=== PATIENT | female | born 1945 | race Caucasian/White ===

== ENCOUNTER 2018-04-14 19:49 | Emergency (ER) | payer OTHER, MEDICAID ==
[~2018-04-14] VITALS: Ht 152.4 cm; Wt 63.5 kg
[~2018-04-14 19:49] MED LIST: ACETAMINOPHEN325 M1 PO; AMLODIPINE BESY10 MG PO; ANTIVERT25 MG PO; ASPIR 8181 MG PO; CIPROFLOXACIN250 M2 PO; CLONIDINE0.1 PO; COREG25 MG PO; COREG3.125 MG PO; ELIQUIS5 MG PO; GLUCOPHAGE500 MG PO; K-DUR 20 MEQ T20 MEQ PO; K-DUR10 MEQ PO; LIPITOR 20 MG T20 M1 PO; LISINOPRIL10 MG PO; NORVASC5 MG PO; PHENAZOPYRIDIN200 M2 PO; PHENAZOPYRIDINE PO; PIOGLITAZONE15 MG PO; SORINE 80 MG TA80 M1 PO; TOPROL XL50 MG PO; ZANTAC300 MG PO; ZOCOR20 MG PO; ZOFRAN ODT4 MG PO
[2018-04-14] MEDS ORDERED: COREG25 MG PO (20:04)
[2018-04-14] MEDS ORDERED: EYE DROP TEARS15 ML OPHTHALMIC (20:04)
[2018-04-14] MEDS ORDERED: ASPIR 8181 MG PO (20:07)
[2018-04-14 20:17] LABS: URINE BLOOD NEGATIVE (Negative); URINE CLARITY CLEAR; URINE COLOR YELLOW; URINE GLUCOSE-RANDOM TRACE (Negative); URINE KETONES 1+ (Negative); URINE LEUKOCYTES-REFLEX TRACE (Negative); URINE NITRITE-REFLEX NEGATIVE (Negative); URINE PROTEIN 1+ (Negative)
[2018-04-14 20:20] LABS: ICTOTEST (BILI CONFIRMATORY) Negative (Negative); URINE BILIRUBIN 1+ (Negative)
[2018-04-14 20:28] LABS: ABSOLUTE BASOPHILS 0.1 thou/uL (0.0-0.2); ABSOLUTE EOSINOPHILS 0.2 thou/uL (0.0-0.7); ABSOLUTE LYMPHOCYTES 2.8 thou/uL (0.8-5.3); ABSOLUTE MONOCYTES 1.3 thou/uL (0.0-1.2); ABSOLUTE NEUTROPHILS 5.8 thou/uL (1.6-8.1); BASOPHILS 1.2 %; EOSINOPHILS 1.6 %; HEMATOCRIT 44.2 % (37.0-47.0); HEMOGLOBIN 14.6 gm/dL (12.0-15.0); LYMPHOCYTES 27.4 %; MCH 29.7 pg (26.0-34.0); MONOCYTES 12.7 %; MPV 11.5 fl. (7.2-11.1); NUCLEATED RBCS 0 /100WBC; PLATELET COUNT* 187 thou/uL (150-400); POLYS 57.1 %; RDW-CV 13.4 % (10.5-14.5); WBC 10.1 thou/uL (4.0-11.0)
[2018-04-14 20:30] LABS: HYALINE CASTS >10 Many /LPF (None Seen); MUCUS None Seen strn/LPF (None Seen); SQUAMOUS >10 Many /LPF (0-3)
[2018-04-14 20:31] LABS: BACTERIA-REFLEX 1-9 Few /HPF (None Seen); CRYSTALS None Seen /LPF (None Seen); URINE WBC-REFLEX 0-5 Rare /HPF (0-5)
[2018-04-14 20:32] LABS: URINE RBC 0-2 Rare /HPF (0-2)
[2018-04-14 20:35] LABS: AMP/METHAMP Negative (Negative); BARBITURATES Negative (Negative); BENZODIAZEPINES Negative (Negative); COCAINE Negative (Negative); METHADONE Negative (Negative); OPIATES Negative (Negative); PCP Negative (Negative); THC Negative (Negative)
[2018-04-14 20:43] LABS: ANION GAP 8 mmol/L (7-16); BUN 17 mg/dL (7-18); CALCIUM 9.6 mg/dL (8.5-10.1); CHLORIDE 100 mmol/L (98-107); CO2 30 mmol/L (21-32); CREATININE 1.3 mg/dL (0.6-1.3); GLUCOSE 163 mg/dL (70-99); SODIUM 138 mmol/L (136-145)
[2018-04-14 20:44] LABS: ALKALINE PHOSPHATASE 80 U/L (46-116); SGOT 23 U/L (15-37); SGPT 30 U/L (30-65); TOTAL BILIRUBIN 0.4 mg/dL (<0.1-1.0); TOTAL PROTEIN 8.3 g/dL (6.4-8.2); TROPONIN-I LEVEL <0.06 ng/mL (<0.06)
[2018-04-14 20:48] LABS: ALCOHOL < 10 mg/dL (<10); SALICYLATE 3.3 mg/dL (2.8-20.0)
[2018-04-14 20:51] LABS: ACETAMINOPHEN < 2 ug/mL (10-30)
[2018-04-15 00:45] VITALS: BP 179/83
--- NOTE | 2018-04-15 13:39 | EKG ---
[place] [address] ELECTROCARDIOGRAM REPORT Name: JARRETT BECK Room: [facility]#: [id number] Admission: 04/14/18 Attend Phys: Discharge: 04/15/18 Date of : 41 Report #: [id number] THIS REPORT FOR: //name// [facility] ED Test Date: 2018-04-14 Test Time: 20:14:16 Pat Name: JARRETT PEREZBURY Department: Room: Gender: F Zoning Administrator: DAMARIS : 1945 Requested By: Roosevelt Holt Order Number: [id number] MD: Humberto Buitrago Measurements Intervals Wall Rate: 82 P: 41 [place]: 136 QRS: -22 QRSD: 89 T: 23 QT: 395 QTc: 462 Interpretive Statements Sinus rhythm nonspecific st changes Borderline left axis deviation Compared to ECG 08/20/2017 10:49:[address] changes noted Electronically Signed On 04-15-2018 13:39:10 CDT by Humberto Buitrago [email or web address] <ELECTRONICALLY SIGNED> By: Humberto Buitrago MD, [facility] 04/15/18 1339 13 13 Humberto Buitrago MD, FACC /EPI
== END 2018-04-15 01:17 | disposition short-term general hospital (02) ==
LOC: M.ERS 19:49
PROVIDERS: Emergency Medicine
DX: R45.851 Suicidal ideations (principal); G89.29 Other chronic pain; M54.9 Dorsalgia, unspecified; E11.9 Type 2 diabetes mellitus without complications; I10 Essential (primary) hypertension; E78.5 Hyperlipidemia, unspecified; Z86.73 Personal history of transient ischemic attack (TIA), and cerebral infarction without residual deficits

== ENCOUNTER 2018-05-29 08:45 | Emergency (ER) | payer OTHER, MEDICAID ==
[~2018-05-29] VITALS: Ht 152.4 cm; Wt 63.5 kg
[~2018-05-29 08:45] MED LIST changes: +EYE DROP TEARS15 ML OPHTHALMIC
[2018-05-29] MEDS ORDERED: TRAMADOL HCL50 MG PO (09:01)
[2018-05-29] MEDS ORDERED: TRAZODONE HCL100 MG PO (09:02)
[2018-05-29] MEDS ORDERED: PERCOCET 5-3251 EACH PO (09:40)
[2018-05-29 10:34] VITALS: BP 172/66
== END 2018-05-29 10:34 | disposition home or self-care (01) ==
LOC: M.ERS 08:45
DX: S52.591A Other fractures of lower end of right radius, initial encounter for closed fracture (principal); G89.29 Other chronic pain; M54.9 Dorsalgia, unspecified; E11.9 Type 2 diabetes mellitus without complications; I10 Essential (primary) hypertension; E78.5 Hyperlipidemia, unspecified; Z86.73 Personal history of transient ischemic attack (TIA), and cerebral infarction without residual deficits; W01.0XXA Fall on same level from slipping, tripping and stumbling without subsequent striking against object, initial encounter; Y93.89 Activity, other specified; Y92.89 Other specified places as the place of occurrence of the external cause; Y99.8 Other external cause status

== ENCOUNTER 2018-06-08 11:19 | Observation (INO) | payer OTHER, MEDICAID ==
[~2018-06-08] VITALS: Ht 152.4 cm; Wt 66.2 kg
[~2018-06-08 11:19] MED LIST changes: +PERCOCET 5-3251 EACH PO; +TRAMADOL HCL50 MG PO; +TRAZODONE HCL100 MG PO
[2018-06-08 12:17] VITALS: BP 147/73
[2018-06-08 12:26] LABS: HEMATOCRIT 37.5 % (37.0-47.0); HEMOGLOBIN 12.3 gm/dL (12.0-15.0); MCH 29.6 pg (26.0-34.0); MCHC 32.9 g/dL (28.0-37.0); MCV 89.8 fL (80.0-100.0); MPV 11.7 fl. (7.2-11.1); RBC 4.18 mil/uL (4.20-5.00); RDW-CV 14.3 % (10.5-14.5); WBC 8.1 thou/uL (4.0-11.0)
[2018-06-08 12:30] LABS: CALCIUM 9.6 mg/dL (8.5-10.1); CREATININE 0.9 mg/dL (0.6-1.3); POTASSIUM 3.5 mmol/L (3.5-5.1)
[2018-06-08 18:37] VITALS: BP 159/77
--- NOTE | 2018-06-08 18:58 | NUR ---
LEFT MESSAGE FOR PT'S DAUGHTER, SAMANTHA, BY PHONE TO UPDATE HER ON HER MOTHER'S SURGERY AND HER STATUS.
[2018-06-08 20:00] VITALS: BP 148/79
[2018-06-09] VITALS: BP 147/70
[2018-06-09 04:36] VITALS: BP 145/71
--- NOTE | 2018-06-09 05:46 | NUR ---
ASSESSMENT COMPLETE. PT SLEPT PART OF THE NIGHT. PT GIVEN PAIN MEDICATION ONCE DURING THE NIGHT. DRESSING AND SPLINT TO LEFT ARM INTACT. LEFT ARM ELEVATED AND COLD PACK IN PLACE. PT IS ON 2L PER NC WITH CAPNO IN PLACE. PT IS UP ONE ASSIST. FALL RISK, BED ALARM ON. SEE ASSESSMENT AND VITALS FOR OTHER DETAILS. CALL LIGHT WITHIN REACH, WILL CONTINUE PLAN OF CARE
[2018-06-09 08:24] VITALS: BP 160/73
[2018-06-09 08:25] VITALS: BP 160/73
--- NOTE | 2018-06-09 09:50 | NUR ---
ASSUMED CARES OF PT AT 0700. PT IN BED, BED IN LOW LOCKED POSITION. CALL BUTTON AND PERSONAL ITEMS IN PT REACH. PT A&O X4, HRRR PER AUSCULTATION, LCTAB, ABD HYPOACTIVE FOUR QUADRANTS. VSS ON 2L O2 NC/CAPNO. LAST BM YESTERDAY. MINIMAL EDEMA IN LEFT HAND/FINGERS R/T WRIST SURGERY, PT STATES FINGERS HAVE IMPROVED. PT UP TO BSC. RIGHT FA IV PATENT TO FLUSH/SALINE LOCKED. AFEBRILE, PERRLA. PAIN TREATED WITH OXY IR 10MG, EFFECTIVE. HOURLY ROUNDING AND ACCU CHECKS CONTINUE. PT PROGRESSING TOWARDS GOAL. WILL CONTINUE TO MONITOR PT STATUS/PROGRESS.
[2018-06-09 12:55] VITALS: BP 160/73
--- NOTE | 2018-06-09 14:00 | NUR ---
PT.ALERT AND ORIENTED. STATED SHE LIVES ALONE. HER 2 DAUGHTERS,LIVE IN [place]. SHE SAID SHE LIVES IN A HOUSE. DOES NOT USE ANY DME. SHE DOES NOT HAVE WATER AT HER HOME SHE COULD NOT PAY HER BILL SINCE NOV. IT WAS SHUT OFF IN DEC. SHE ALSO DOES NOT HAVE A PHONE SHE COULD NOT PAY HER BILL. SHE SAYS ONE OF HER DAUGHTER'S PAY HER ELECTRIC BILL. SHE DOES HAVE A WINDOW UNIT AIR CONDITIONER. SHE SAID SHE HAS A CAR BUT ALOT OF TIMES SHE DOES NOT HAVE MONEY FOR GAS. SHE GETS FOOD STAMPS. SHE BUYS ALOT OF BOTTLED WATER. TRISHA CALLED [facility] AND SPOKE WITH ROSEANNA COLEMAN. SHE SAID PT. WOULD OWE $100 DEPOSIT TO GET WATER BACK ON AND $65 FOR THE DEC.BILL. TRISHA ATTEMPTED TO CALL [employer] IN [place] FOR ANY ASSISTANCE THEY COULD GIVE PT. BUT THEY ARE ONLY OPEN ON /. SHE SAID SHE INHERITED A HOUSE FROM HER MOM BACK IN $2010. THE GOVERNMENT TOOK AWAY HER SS DISABILITY SINCE SHE INHERITED THIS HOUSE. SHE HAS SOLD THE HOUSE BUT THE MONEY SHE MADE FROM IT WENT TO THE UPKEEP OF THE HOUSE. GAVE HER [employer] INFORMATION. TOLD HER SHE SHOULD HAVE A SOUND MIXER THROUGH HER MEDICAID. SHE WILL SEE IF SHE CAN FIND OUT WHO IT IS. TRISHA OBTAINED DAUGHTER-SAMANTHA ELDER IN [place]'S PHONE #-[phone] FROM PACU NURSE. TRISHA WILL CALL HER TOMORROW. WILL ALSO NEED TO NOTIFY THE DIV.OF HEALTH AND SS. OF NO RUNNING WATER. NSG.MACHINE I CUTTER WILL ASSIST PT.WITH SHOWER PRIOR TO DISCHARGE. TRISHA ARRANGED RIDE HOME THROUGH [phone]. TRIP #[id number].
--- NOTE | 2018-06-09 19:38 | NUR ---
REPORT TO SHIFT CHANGE. PT WAITING ON TRANSPORT TO HOME. TRANSPORT CALLED AT 1630 AND REPORTED THEY WERE IN [place], [place] AND ON THEIR WAY TO [facility] TO UTILITIES MANAGER PT. PT IS READY, DISCHARGE COMPLETED, PERSONAL ITEMS PACKED AND READY TO GO. PT WAITING IN BED IN ROOM AT SHIFT CHANGE. HOURLY ROUNDING COMPLETED.
--- NOTE | 2018-06-09 19:56 | NUR ---
PT TRANSPORT PICKED PT UP AT 1953 TO GO TO [facility]. PERSONAL BELONGINGS TAKEN WITH PT. IV WAS REMOVED SEVERAL HOURS AGO PENDING TRANSPORTATION. DISCHARGE COMPLETE.
[2018-06-09 19:57] VITALS: BP 160/73
--- NOTE | 2018-06-16 11:57 | OP ---
[facility] [address] [place] [address] OPERATIVE REPORT Name: JARRETT BECK Room: [address] Vadim Diaz#: [id number] Admission: 06/08/18 Attend Phys: Baldev Marks Discharge: 06/09/18 Date of : 41 Report #: [id number] THIS REPORT FOR: //name// CC: Gene Montana DATE OF SERVICE: 06/08/2018 PRIMARY PHYSICIAN: Dr. Gene Turner. PREOPERATIVE DIAGNOSIS: Closed comminuted fracture, left distal radius, greater than 3 pieces. POSTOPERATIVE DIAGNOSIS: Closed comminuted fracture, left distal radius, greater than 3 pieces. PROCEDURE: 1. Open reduction and internal fixation, left distal radius of greater than 3 pieces fracture. 2. Physician-directed fluoroscopy by Dr. Larios, less than 1 hour. SURGEON: Xander Larios DO. ORTHOPEDIC DESIGNER: Parker Newsome. ANESTHESIA: General. GROSS PATHOLOGY: This patient suffered a left wrist injury. She was seen at [place] [facility] and a splint was applied. There was a comminuted fracture, greater than 3 pieces of the left distal radius with angulation noted. She has just come to my office on 06/07/2018 with the above diagnosis. I reviewed her injury and surgery. She had an obvious deformity of her wrist. I discussed the possible complications of surgery and postop care. She will be admitted. This patient lives at home, has no help. She will need pain management and also medical stabilization by Internal Medicine of her diabetes. 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 IMPLANTS UTILIZED: Hand Shawmut distal radius plating system. DESCRIPTION OF PROCEDURE: The patient was brought to the operating room where general anesthetic was administered. Preoperative antibiotics were given. A Hibiclens scrub and a ChloraPrep, prep were done to the left arm. The patient was draped in a sterile manner. The tourniquet was inflated to 225 mmHg in the left upper arm. Incision was made on the volar radial aspect of the left wrist in line with the flexor carpi radialis approximately 6 cm in length, [place] [address] OPERATIVE REPORT Name: JARRETT BECK Room: [address] Vadim Diaz#: [id number] Admission: 06/08/18 Attend Phys: Baldev Marks Discharge: 06/09/18 Date of : 41 Report #: [id number] down through the skin and subcuticular material by sharp and blunt dissection. It was continued through the floor of the FCR tendon to the pronator which was disrupted from the fracture pattern. The patient did have some elevation of blood pressure: because of this, overriding the tourniquet was done and the tourniquet was deflated to 0. Blood pressure was improved and then the tourniquet was then reinflated after Esmarch was removed. The fracture site was further identified, some callus formation was noted, which was freed up to help with the reduction as well as soft tissue. The fracture was reduced, noted to be in acceptable position. The plate was placed in position, held in place with wires temporarily and again viewed with the C-arm, noted to be acceptable position. The centering hole of the proximal portion of the plate was filled with 3.5 cortical screws. The proximal of the distal portion of the plate was filled with threaded screws and smooth pegs distally. The remaining two screw holes were filled in the proximal portion of the plate. Visualization revealed acceptable position, which was confirmed with the C-arm of the plate and fracture site. C-arm was used intermittently under my direction. The tourniquet was deflated to 0. Hemostasis maintained. There was no pronator to close, but it did fall back in good position. The subcutaneous was closed with 3-0 Vicryl and interrupted 4-0 nylon on the skin. The area was anesthetized with Marcaine 0.5% plain, approximately 12 mL. Sterile dressing was applied, dorsal splints applied. The patient was transferred to the recovery room in good condition. Blood loss approximately 20 mL. <ELECTRONICALLY SIGNED> By: Ad Dewitt DO 06/16/18 1157 1641 [id number] Larios DO /aby
== END 2018-06-09 19:54 | disposition home or self-care (01) ==
LOC: M.SUR 11:19 → M.ORTHSURG 11:19 → M.SUR 13:43 → M.ORTHSURG 16:34 → M.SUR 16:34 → M.ORTHSURG 16:34 → M.SUR 16:34 → M.ORTHSURG 06-09 19:54
PROVIDERS: Orthopaedic Surgery; ADMIT Internal Medicine
DX: S52.502A Unspecified fracture of the lower end of left radius, initial encounter for closed fracture (principal); I10 Essential (primary) hypertension; R52 Pain, unspecified; E11.9 Type 2 diabetes mellitus without complications; F32.9 Major depressive disorder, single episode, unspecified; X58.XXXA Exposure to other specified factors, initial encounter; Y93.89 Activity, other specified; Y92.89 Other specified places as the place of occurrence of the external cause; Y99.8 Other external cause status; Z98.890 Other specified postprocedural states; Z79.82 Long term (current) use of aspirin; Z86.73 Personal history of transient ischemic attack (TIA), and cerebral infarction without residual deficits; Z87.891 Personal history of nicotine dependence